=== PATIENT | female | born 1955 | race Caucasian/White ===

== ENCOUNTER 2023-02-04 21:43 | Inpatient (IN) | payer OTHER, MEDICARE, SELFPAY ==
--- NOTE | 2023-02-04 00:10 | RAD_ITS ---
INDICATION: Preop hip surgery EXAMINATION/TECHNIQUE: X-RAY - XR Chest 1 View COMPARISON: None. FINDINGS: LINES/DEVICES: None. LUNGS: No pulmonary edema or focal airspace consolidation. No sizable pleural effusion. No pneumothorax detected. MEDIASTINUM AND CARDIOVASCULAR STRUCTURES: Heart size within normal limits. Mediastinal contours unremarkable. BONES AND SOFT TISSUES: No acute findings. RAD/Chest 1 View (Portable) IMPRESSION: No radiographic evidence of acute cardiopulmonary disease. Electronically Signed: Edgar Ybarra MD at 0:59 EST ,
[2023-02-04 21:44] VITALS: BP 115/53; PULSE 78; RESP 16; TEMP 37.1; O2SAT 100
[2023-02-04 21:47] VITALS: BMI 25.2
--- NOTE | 2023-02-04 22:10 | RAD_ITS ---
STUDY: X-RAY - PELVIS AND LEFT HIP REASON FOR EXAM: Female, 67 years old. fall/pain TECHNIQUE: 3 views of the pelvis and hip. COMPARISON: None. FINDINGS: There is a non-specific bowel gas pattern. Normal visualized soft tissue structures. Normal bilateral iliac wings, sacroiliac joints and visualized sacrum. Normal bilateral superior and inferior pubic rami. Normal pubic symphysis. Normal bilateral ischial tuberosities. Acute impacted fracture of the subcapital femoral neck. Normal acetabulum. Normal hip joint. RAD/HIP, UNI W/ Pelvis 2-3 Views IMPRESSION: Acute impacted fracture of the subcapital femoral neck. Electronically Signed: Jn Holt MD at 22:45 EST ,
--- NOTE | 2023-02-04 23:04 | EKG12_ITS ---
Test Reason : PRE OP Blood Pressure : / mmHG Vent. Rate : 089 BPM Atrial Rate : 089 BPM P-R Int : 192 ms QRS Dur : 084 ms QT Int : 364 ms P-R-T Axes : 065 057 046 degrees QTc Int : 442 ms Normal sinus rhythm Normal ECG Confirmed by EMILY HERNANDEZ, ABHISHEK ([id number]), manuscript editor ANDREEA YOUNG ([id number]) on 02/05/2023 1:11:27 PM Referred By: Andrew Espinoza Confirmed By:ABHISHEK DIAZ MD
--- NOTE | 2023-02-04 23:09 | HP.PCM.HOS_ITS ---
HPI - General General Date of Admission: 02/04/23 Date of Service: 02/04/23 Chief Complaint: Fall, L hip pain. HPI Narrative The patient is a 67 y/o F w/ no PMHx who presents to the [facility] ED on 02/04/23 with history of mechanical fall, walking on her hardwood floors and unfortunately slipping with significant left hip and pelvic pain unable to bear weight with severe ongoing 10 out of 10 pain prompting ED evaluation for further assessment. Workup in the ED included plain film of the left hip with an acutely impacted fracture of the subcapital femoral neck. Pending CBC, BMP, EKG and CXR upon requested evaluation of patient. Patient declined pain medication in the ED initially. ED discussed case with Dr. Stokes Orthopedic surgery. In the ED patient reports pain when she is at rest not moving 3-4/10 in severity to the L hip but if she moves at all as noted 10/10. [facility] Medical History (Updated 02/05/23 @ 00:[address] Eliz Zhang MD) H/O Mohs micrographic surgery for skin cancer No significant past medical history Medical History no medical history Allergy/AdvReac Type Severity Reaction Status Date / Time menthol [From [facility]] Allergy Intermediate Hives Verified 02/04/23 21:53 methyl salicylate Allergy Intermediate Hives Verified 02/04/23 21:53 [From [facility]] Family History (Updated 02/05/23 @ 00:[address] Eliz Zhang MD) Mother Hypertension Father Diabetes Surgical History (Updated 02/05/23 @ 00:[address] Eliz Zhang MD) History of ankle surgery History of section Social History (Updated 02/05/23 @ 00:[address] Eliz Zhang MD) household members: spouse Smoking Status: Never smoker alcohol intake: never substance use type: does not use Vital Signs Vital Signs Vital Signs: 02/04/23 21:44 Temperature 98.7 F Temperature Source Temporal Pulse Rate 78 Respiratory Rate 16 Blood Pressure 115/53 L Blood Pressure Mean 73 Pulse Ox 100 Oxygen Delivery Method Room Air Results Lab / Micro Data 02/04/23 00:02 02/04/23 00:02 Imagaing Radiology Impression Hip/Pelvis X-Ray 02/04/23 22:10 IMPRESSION: Acute impacted fracture of the subcapital femoral neck. Electronically Signed: Jn Holt MD at 22:45 EST , Assessment & Plan Assessment/Plan (1) Closed left hip fracture: PLAN: Plan The patient is a 67 y/o F w/ no PMHx who presents to the [facility] ED on 02/04/23 with history of mechanical fall, walking on her hardwood floors and unfortunately slipping with significant left hip and pelvic pain unable to bear weight with severe ongoing 10 out of 10 pain prompting ED evaluation for further assessment. #1. General debility, left hip pain s/p mechanical fall w/ acutely impacted fracture of the subcapital femoral neck: ED CBC, BMP, EKG, CXR pending upon requested evaluation of patient. Orthopedic surgery consulted from ED. Will admit to MS, maintain NPO, pond placement, monitor I/Os, frequent positioning, fall precautions, PRN pain/anti-emetic regimen. PT/OT following operative inter vention. CM consulted for discharge planning. Per NSQIP guidelines patient with no marked risk elevation given she is healthy with no marked medical history with full self-care, active but awaiting admission CBC, BMP, EKG although do not expect any irregularities and as long as these are appropriate notified PICC surgery that would plan for progression to OR in AM. #2. DVT prophylaxis: SCDs, hold chemoprophylaxis for surgery ideally in AM. Charges/Coding Visit Charges Inpatient E&M: 17418 Init Hosp L2
[2023-02-04 23:24] VITALS: BP 125/63; PULSE 86; RESP 16; O2SAT 96
--- NOTE | 2023-02-04 23:56 | ED.VIS.LOWEX ---
HPI History of Present Illness Chief Complaint: Lower Extremity Injury Narrative Narrative: 67-year-old female present with left hip pain. She states she was walking around the house on her socks and slipped and fell injuring her left hip. She is not able to bear weight. Patient denies hitting her head or loss of consciousness. She denies other injury. She is brought by EMS due to pain. PFSH PFSH Allergy/AdvReac Type Severity Reaction Status Date / Time menthol [From [facility]] Allergy Intermediate Hives Verified 02/04/23 21:53 methyl salicylate Allergy Intermediate Hives Verified 02/04/23 21:53 [From [facility]] Social History Smoking Status: Never smoker ROS ROS ED Constitutional Constitutional ED: Denies chills, fever(s) or sweats Eyes Eyes: Denies blurry vision or change in vision ENT ENT ED: Denies ear pain or sore throat Cardiovascular Cardiovascular: Denies chest pain, palpitations or racing heartbeat Respiratory/Chest Respiratory/Chest: Denies cough, dyspnea or sputum Gastrointestinal Gastrointestinal: Denies abdominal pain, constipation, diarrhea, nausea or vomiting Genitourinary Genitourinary ED: Denies dysuria, hematuria or urinary frequency Musculoskeletal Musculoskeletal: Reports other Details: Left hip pain ; Denies arthralgias, myalgias or neck pain Integumentary Denies abscess, Abrasions or rash Neurologic Neurologic: Denies headache(s), paresthesias or weakness Psychiatric Psychiatric: Denies anxiety, depression, suicidal ideation or suicidal thoughts Endocrine Endocrinology: Denies polydipsia or polyuria EXAM Physical Exam Const Vital Signs: 02/04/23 21:44 Temperature 98.7 F Temperature Source Temporal Pulse Rate 78 Respiratory Rate 16 Blood Pressure 115/53 L Blood Pressure Mean 73 Pulse Ox 100 Oxygen Delivery Method Room Air Positive well nourished General Appearance ED: NAD HEENT normocephalic and atraumatic Chest Wall inspection of chest normal Resp normal respiratory effort Cardio regular rate and regular rhythm Extremity Extremity Narrative: Tenderness palpation over the left hip. Patient is partially able to extend her left hip up off the bed. He does have pain with logroll. Leg is not shortened or externally rotated. Neuro oriented x3 and CN's II-XII intact bilaterally Sensorium / Orientation: alert Motor Exam: strength 5/5 throughout Psych mental status grossly normal MDM MDM MDM Narrative Medical decision making narrative: Patient presenting with left hip pain after fall. She does have pain on examination but is able to slightly extend this hip off the bed. X-ray of the left hip by my interpretation shows an impacted subcapital femoral neck fracture. Radiology interprets this and agrees. Given this CBC and BMP were ordered. Chest x-ray and EKG were ordered for preop clearance. I discussed this with Dr. Stokes who will do surgery. Discussed with hospitalist for admission. Impression: 1. Mechanical fall 2. Left hip fracture Lab Data Attestation: I reviewed the patient's lab results. Radiography Diagnostic Testing: Clinical Impression(s) from Imaging Studies Hip/Pelvis X-Ray 02/04/23 22:10 IMPRESSION: Acute impacted fracture of the subcapital femoral neck. Electronically Signed: Jn Holt MD at 22:45 EST , Discharge Plan Triage Chief Complaint: Lower Extremity Injury ED Provider: Anderw Espinoza Dx/Rx/DC Orders Primary Care Provider: Afua Hagen NP
[2023-02-05] VITALS (15 sets, daily range): BP systolic 114–132; BP diastolic 50–64; PULSE 68–86; RESP 16–18; TEMP 36.4–37.7; O2SAT 92–100; BMI 25.2
[2023-02-05 00:29] LABS: Absolute Lymphocyte Count 1.96 X10^3/uL (0.83-4.51); Absolute Neutrophil Count 7.1 X10^3/uL (2.0-7.7); Basophil# 0.03 X10^3/uL; Basophil% 0.3 % (0-1); Eosinophil# 0.09 X10^3/uL; Eosinophils% 0.9 % (0-5); Hematocrit 36.6 % (37-47); Hemoglobin 11.9 g/dL (12.0-15.0); Lymphocyte # 1.96 X10^3/ul (0.83-4.51); Lymphocyte % 19.7 % (19-41); Mean Corp Hgb Conc 32.5 g/dL (32-36); Mean Corpuscular Hgb 30.7 pg (27.0-32.0); Mean Corpuscular Volume 94.6 fL (81-99); Mean Platelet Vol. 9.7 fl (6.2-12.0); Monocyte# 0.57 X10^3/uL; Monocyte% 5.7 % (0-10); NRBC Flagged by Analyzer 0 % (0-5); Neutrophil # 7.14 X10^3/uL (2.7-7.7); Platelet Count 225 K/mm3 (150-450); RBC Distribution Width CV 13.4 % (11.6-14.6); RBC Distribution Width SD 46.8 fl (35.1-43.9); Red Blood Count 3.87 M/mm3 (4.2-5.4); White Blood Count 9.9 K/mm3 (4.4-11.0)
[2023-02-05 00:33] LABS: Anion Gap 3 (5-15); BUN 13 mg/dL (7-18); BUN/Creat Ratio 17.7 RATIO (10-20); Calcium,Total 9.7 mg/dL (8.5-10.1); Chloride 114 mmol/L (98-107); Creatinine, Serum 0.73 mg/dL (0.55-1.02); EST Glomerular Filtration Rate 84 mL/min (>60); Est Glom Filt Rate - Afr Amer 102 mL/min (>60); Glucose 101 mg/dL (74-106); Potassium 3.9 mmol/L (3.5-5.1); Sodium Level 143 mmol/L (136-145)
[2023-02-05] MEDS: 0.9% Normal Saline (1000mL) 1,000 ML 100 ML IV (00:54)
[2023-02-05] MEDS: oxyCODONE 5 MG Tablet PO ×4 (01:17→23:35)
[2023-02-05 05:41] LABS: Absolute Lymphocyte Count 1.49 X10^3/uL (0.83-4.51); Absolute Neutrophil Count 6.3 X10^3/uL (2.0-7.7); Basophil# 0.03 X10^3/uL; Basophil% 0.4 % (0-1); Eosinophil# 0.03 X10^3/uL; Eosinophils% 0.4 % (0-5); Hematocrit 33.9 % (37-47); Lymphocyte # 1.49 X10^3/ul (0.83-4.51); Lymphocyte % 17.5 % (19-41); Mean Corp Hgb Conc 32.4 g/dL (32-36); Mean Corpuscular Volume 95.5 fL (81-99); Mean Platelet Vol. 10.1 fl (6.2-12.0); Monocyte# 0.61 X10^3/uL; Monocyte% 7.2 % (0-10); NRBC Flagged by Analyzer 0 % (0-5); Neutrophil # 6.31 X10^3/uL (2.7-7.7); Platelet Count 205 K/mm3 (150-450); RBC Distribution Width CV 13.3 % (11.6-14.6); Red Blood Count 3.55 M/mm3 (4.2-5.4); White Blood Count 8.5 K/mm3 (4.4-11.0)
[2023-02-05 06:06] LABS: AST(SGOT) 17 U/L (15-37); Alanine Aminotransfer ALT/SGPT 24 U/L (13-56); Alkaline Phosphatase 75 U/L (45-117); Anion Gap 6 (5-15); BUN 10 mg/dL (7-18); BUN/Creat Ratio 16.5 RATIO (10-20); Calcium,Total 8.7 mg/dL (8.5-10.1); Chloride 113 mmol/L (98-107); EST Glomerular Filtration Rate 105 mL/min (>60); Est Glom Filt Rate - Afr Amer 127 mL/min (>60); Globulin 2.9 g/dL (2.2-4.2); Glucose 102 mg/dL (74-106); Potassium 3.7 mmol/L (3.5-5.1); Protein, Total 5.9 g/dL (6.4-8.2); Sodium Level 143 mmol/L (136-145)
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
--- NOTE | 2023-02-05 09:02 | CON.PCM.OR_ITS ---
HPI Consult Data Date of Consult: 02/05/23 HPI Narrative HPI Narrative: MILADYS GUTIERREZ, is a 67 F who presents with a left femoral neck fracture. Patient had a ground-level fall at home slipped running from the kitchen on carpet. Fell directly onto the hip was having difficulty ambulating after that. No prior antecedent hip pain. Patient ambulates independently lives at home. The patient is here today with her . [facility] Medical History H/O Mohs micrographic surgery for skin cancer No significant past medical history Medical History no medical history Home Medications NK 02/05/23 [History Last Taken Unknown] Allergy/AdvReac Type Severity Reaction Status Date / Time menthol [From [facility]] Allergy Intermediate Hives Verified 02/04/23 21:53 methyl salicylate Allergy Intermediate Hives Verified 02/04/23 21:53 [From [facility]] Family History (Updated 02/05/23 @ 00:[address] Eilz Zhang MD) Mother Hypertension Father Diabetes Surgical History History of ankle surgery History of section Social History (Updated 02/05/23 @ 00:[address] Eliz Zhang MD) household members: spouse Smoking Status: Never smoker alcohol intake: never substance use type: does not use Vital Signs Vital Signs Vital Signs: 02/04/23 21:44 02/05/23 00:37 02/05/23 01:08 Temperature 98.7 F 99.4 F H Temperature Source Temporal Oral Pulse Rate 78 84 Pulse Strength Respiratory Rate 16 16 Respiratory Effort Normal Respiratory Depth Normal Respiratory Pattern Normal Blood Pressure 115/53 L 124/54 H Blood Pressure Mean 73 77 Blood Pressure Source Monitor Blood Pressure Position Semi-Fowlers Blood Pressure Location Left Arm Pulse Ox 100 98 Oxygen Delivery Method Room Air Room Air Room Air 02/05/23 00:12 02/04/23 23:24 02/05/23 04:45 Temperature 99.6 F H Temperature Source Oral Pulse Rate 86 86 83 Pulse Strength Respiratory Rate 16 16 16 Respiratory Effort Respiratory Depth Respiratory Pattern Blood Pressure 125/63 H 125/63 H 114/50 L Blood Pressure Mean 83 83 71 Blood Pressure Source Monitor Blood Pressure Position Semi-Fowlers Blood Pressure Location Left Arm Pulse Ox 96 96 96 Oxygen Delivery Method Room Air Room Air 02/05/23 01:26 02/05/23 08:37 02/05/23 08:37 Temperature Temperature Source Pulse Rate Pulse Strength Normal (2+) Respiratory Rate Respiratory Effort Normal Respiratory Depth Normal Respiratory Pattern Normal Blood Pressure Blood Pressure Mean Blood Pressure Source Blood Pressure Position Blood Pressure Location Pulse Ox 98 Oxygen Delivery Method Room Air Room Air 02/05/23 08:37 Temperature 98.9 F Temperature Source Oral Pulse Rate 81 Pulse Strength Respiratory Rate 16 Respiratory Effort Respiratory Depth Respiratory Pattern Blood Pressure 116/61 Blood Pressure Mean 79 Blood Pressure Source Monitor Blood Pressure Position Semi-Fowlers Blood Pressure Location Left Arm Pulse Ox 92 Oxygen Delivery Method Room Air Weight Weight: 151 lb 10.848 oz Body Mass Index (BMI) 25.2 Physical Exam Const alert, oriented x3, no apparent distress and well nourished Extremity normal capillary refill, no clubbing, cyanosis or edema and no calf tenderness Extremity Narrative: Closed. Left lower extremity marked. Able to wiggle the toes dorsiflex and plantarflex the foot the foot is warm and well-perfused normal sensation on the dorsum and plantar aspect of the foot. Lab / Micro Data 02/05/23 04:05 02/05/23 04:05 Labs: Laboratory Results - last 24 hr 02/04/23 00:02: WBC 9.9, RBC 3.87 L, Hgb 11.9 L, Hct 36.6 L, MCV 94.6, MCH 30.7, MCHC 32.5, RDW Std Deviation 46.8 H, RDW Coeff of Mya 13.4, Plt Count 225, MPV 9.7, Immature Gran % (Auto) 1.400 H, Neut % (Auto) 72.0 H, Lymph % (Auto) 19.7, [place] % (Auto) 5.7, Eos % (Auto) 0.9, Baso % (Auto) 0.3, Absolute Neuts (auto) 7.1, Absolute Lymphs (auto) 1.96, Nucleated RBC % 0, Sodium 143, Potassium 3.9, Chloride 114 H, Carbon Dioxide 26.0, Anion Gap 3 L, BUN 13, Creatinine 0.73, Est GFR (MDRD) Af Amer 102, Est GFR (MDRD) Non-Af 84, BUN/Creatinine Ratio 17.7, Glucose 101, Calcium 9.7 02/05/23 04:05: WBC 8.5, RBC 3.55 L, Hgb 11.0 L, Hct 33.9 L, MCV 95.5, MCH 31.0, MCHC 32.4, RDW Std Deviation 47.0 H, RDW Coeff of Mya 13.3, Plt Count 205, MPV 10.1, Immature Gran % (Auto) 0.500, Neut % (Auto) 74.0 H, Lymph % (Auto) 17.5 L, [place] % (Auto) 7.2, Eos % (Auto) 0.4, Baso % (Auto) 0.4, Absolute Neuts (auto) 6.3, Absolute Lymphs (auto) 1.49, Nucleated RBC % 0, Sodium 143, Potassium 3.7, Chloride 113 H, Carbon Dioxide 24.0, Anion Gap 6, BUN 10, Creatinine 0.60, Estim Creat Clear Calc 49.80, Est GFR (MDRD) Af Amer 127, Est GFR (MDRD) Non-Af 105, BUN/Creatinine Ratio 16.5, Glucose 102, Calcium 8.7, Total Bilirubin 1.00, AST 17, ALT 24, Alkaline Phosphatase 75, Total Protein 5.9 L, Albumin 3.0 L, Globulin 2.9, Albumin/Globulin Ratio 1.0 Imagaing Radiology Impression Chest X-Ray 02/04/23 00:10 IMPRESSION: No radiographic evidence of acute cardiopulmonary disease. Electronically Signed: Edgar Ybarra MD at 0:59 EST , Hip/Pelvis X-Ray 02/04/23 22:10 IMPRESSION: Acute impacted fracture of the subcapital femoral neck. Electronically Signed: Jn Holt MD at 22:45 EST , Agree [place] type I impacted valgus impacted femoral neck fracture. Assessment & Plan Assessment/Plan (1) Closed left hip fracture: PLAN: 67-year-old female with L type I valgus impacted femoral neck fracture. Typical option for this would be open reduction internal fixation with cannulated screws (or other means like FNS). Other option would be hemiarthroplasty although typically I do the former if these are nondisplaced which it does appear to be. Risk of non union or shortening, and still needing arthroplasty in the future but avoids risks with arthroplasty like instability although mobility can recover a bit slower. The other option would be nonsurgical management typically this is high risk of complications like VTE or pneumonias or disaplcement requiring arthrplasty. I explained this to the patient. Discussed the pros and cons risk benefits of each method treatment patient opted for surgery in the form of left hip open reduction internal fixation cannulated screws. I have let the team and anesthesia provider know and the customer solutions representative is aware as well. Patient was to proceed and marked the left hip they have been made n.p.o. and admitted under the hospitalist service already. Plan for this afternoon. Pros and cons risks and benefits were discussed with the patient including but not limited to infection, pain, stiffness, bleeding, damage to surrounding structures, neurovascular injury, recurrence or retear, failure or wear of hardware or fixation, instability, fracture, deep vein thrombosis and pulmonary embolism, anesthetic risks, , patient dissatisfaction, need for further surgery and other risks. Patient understood and wished to proceed with surgery, and signed the informed consent documentation.
--- NOTE | 2023-02-05 10:45 | CASEMGMT ---
QUE SOUSA Face to Face with patient for initial transition planning/care coordination assessment. RN CM introduced self and role at [facility]. Patient lying in bed, alert and oriented. Patient willing to participate in assessment and is able to answer all questions appropriately. Care providers, pharmacy, and demographics verified. Patient wishes to discharge home, will monitor progress with therapy after surgery. RN MERRY discussed different LOC for at discharge. Patient states she has no further needs or concerns at this time. CM to follow for discharge planning needs that may arise. PCP: Hieu JACK PRIZER Specialists: none Preferred Pharmacy: [facility] Insurance: MMO Prescription Benefit: yes Living Will/HPOA: yes, Sami Griffith LNOK: Living Arrangements: Patient lives with in a 2 story home with 2 steps and railing to enter. Patient was independent at home. Transportation: self, DME/HHC: Patient has crutches at home. Will need walker at discharge. No previous HHC or SNF Disposition Plan: TBD, will monitor progress with therapy after surgery. Hailey HOLLIDAY, RN, CM
--- NOTE | 2023-02-05 12:28 | NURSING ---
pt to surgery
[2023-02-05] MEDS: Lactated Ringers 1,000 ML 15 ML IV (12:44)
--- NOTE | 2023-02-05 13:58 | RAD_ITS ---
STUDY: Fluoroscopically guided ORIF surgery through the left hip. REASON FOR EXAM: Female, 67 years old. CANNULATED SCREW TECHNIQUE: Fluoroscopy utilized for ORIF procedure of the left hip. 3 images were obtained during the exam. The radiologist was not present in the room. The reported fluoroscopy time is 117.9 seconds with cumulative dose of 25.1 mGy. COMPARISON: None. FINDINGS: Images reveal 3 fixation screws through the left femoral neck with otherwise normal alignment. There is a left femoral neck subcapital fracture. RAD/HIP, UNI W/ Pelvis 2-3 Views IMPRESSION: Fluoroscopically guided ORIF procedure of the left hip as described. For details please see operative report. Electronically Signed: Yenni Porras MD at 18:25 EST ,
[2023-02-05] MEDS: Cefazolin 2 GM in 0.9% Normal Saline (100mL Bag) 100 ML IV (14:10)
[2023-02-05] MEDS: TXA 1000mg in NS100 100ml (IVPB at Incision) 660 MG IV (14:16)
[2023-02-05] MEDS: Bupivacaine 0.25% 30 ML Vial (14:48)
--- NOTE | 2023-02-05 15:03 | OP.PCM_ITS ---
Problems Associated Problem List Diagnoses (1) Closed left hip fracture: Report of Operation Date of Procedure: 02/05/23 Pre-Operative Diagnosis: L hip femoral neck fracture Post-Operative Diagnosis: same Surgery/Procedure Performed:: L hip ORIF cannulated screws Surgeon: Juan Francisco Stokes Type of Anesthesia: General and Local Anesthesiologist: Maksim Angeles Estimated Blood Loss (mL): 30 Description of Procedure: Patient brought to the program theater. Placed supine on the fracture table. 2 g IV Ancef and 1 g IV tranexamic acid administered prior to the start of the case. Patient left leg in the traction set up no traction slight internal rotation. Opposite leg attached to the center post of the bed appropriately padded. Lower extremity prepped and draped in the usual sterile fashion with chlorhexidine-based prep solution allowing over 3 minutes drying time prior to draping. Shower curtain style drape used. Preoperative timeout performed to confirm the site patient and surgery. I began by taking AP and lateral x-rays to confirm valgus impacted nondisplaced nature of the fracture. I then placed a 3 guidewires 3.2 mm partially-threaded in an inverted triangle fashion the most inferior screw along the inferior calcar erring slightly posteriorly. I passed these up into the subchondral bone ensuring no penetration. Measured these and took a few millimeters from final measurements. 85mm inferior, them 80mm and 80mm PS. I drilled the lateral cortex. I made small stab incisions. I used 7.3 mm short thread cannulated Synthes screws with washer for inferior screw. These were passed to subchondral bone. I did the near far technique with live fluoroscopy. I took fi nal x-rays with the pins were removed as well. Ensured starting point at or proximal to LT. Case terminated and appropriate fixation achieved. Screw purchase was good. Wound thoroughly irrigated. Cleaned with wet and dry dressing. Quarter percent bupivacaine for local anesthetic. Skin closed with 3-0 Monocryl suture. Steri- Strips applied followed by Adaptic gauze and clear plastic dressing. Patient taken out of the traction set up transfer off the operating table and taken to postanesthetic care unit in stable condition. All sponge needle instrument counts were correct. Plan to the patient weightbearing as tolerated and Xarelto starting tomorrow for 30 days VTE prophylaxis. cpt 12548 Complications none Admit VTE Documentation VTE Present on Admission: No VTE Mechan Device Prophylaxis: SCD's VTE Pharm Prophylaxis ordered?: Yes Procedures Musculoskeletal [id number]: Other Procedure See Report
[2023-02-05] MEDS: Acetaminophen 325 MG Tablet 650 MG PO (23:38)
[2023-02-06] VITALS (7 sets, daily range): BP systolic 107–148; BP diastolic 48–64; PULSE 70–84; RESP 16–18; TEMP 35.9–36.9; O2SAT 94–98; BMI 25.4
[2023-02-06 06:50] LABS: Absolute Lymphocyte Count 1.47 X10^3/uL (0.83-4.51); Absolute Neutrophil Count 6.4 X10^3/uL (2.0-7.7); Basophil# 0.02 X10^3/uL; Basophil% 0.2 % (0-1); Eosinophil# 0.05 X10^3/uL; Eosinophils% 0.6 % (0-5); Hematocrit 37.2 % (37-47); Hemoglobin 12.1 g/dL (12.0-15.0); Lymphocyte # 1.47 X10^3/ul (0.83-4.51); Lymphocyte % 16.6 % (19-41); Mean Corp Hgb Conc 32.5 g/dL (32-36); Mean Corpuscular Volume 95.4 fL (81-99); Mean Platelet Vol. 9.8 fl (6.2-12.0); Monocyte# 0.84 X10^3/uL; Monocyte% 9.5 % (0-10); NRBC Flagged by Analyzer 0 % (0-5); Neutrophil # 6.42 X10^3/uL (2.7-7.7); Neutrophil % 72.8 % (47-70); Platelet Count 190 K/mm3 (150-450); RBC Distribution Width CV 13.5 % (11.6-14.6); White Blood Count 8.8 K/mm3 (4.4-11.0)
[2023-02-06 07:11] LABS: Anion Gap 5 (5-15); BUN 7 mg/dL (7-18); BUN/Creat Ratio 11.9 RATIO (10-20); Calcium,Total 9.1 mg/dL (8.5-10.1); Chloride 110 mmol/L (98-107); Creatinine, Serum 0.59 mg/dL (0.55-1.02); EST Glomerular Filtration Rate 109 mL/min (>60); Est Glom Filt Rate - Afr Amer 132 mL/min (>60); Glucose 104 mg/dL (74-106); Magnesium 1.9 mg/dL (1.6-2.6); Phosphorus 2.5 mg/dL (2.5-4.9); Potassium 3.7 mmol/L (3.5-5.1); Sodium Level 140 mmol/L (136-145)
--- NOTE | 2023-02-06 07:34 | PCM.PN.HOSP ---
Reason for Visit Reason for Visit: Diagnoses Fracture of unspecified part of neck of left femur, initial encounter for closed fracture (02/04/23) Subjective Subjective Patient underwent L hip ORIF cannulated screws by Dr. Juan Francisco Stokes on 02/05/2023 Objective Data Objective Data Vital Signs: Vital Signs Temp Pulse Resp BP Pulse Ox O2 Del Method O2 Flow Rate 98 F 84 16 148/57 H 94 Nasal Cannula 2 02/06/23 06:00 02/06/23 06:00 02/06/23 06:00 02/06/23 06:00 02/06/23 06:00 02/06/23 06:00 02/06/23 06:00 Oxygen Flow Rate (L/min) 2 Oxygen Delivery Method Nasal Cannula Weight: 69.3 kg Body Mass Index (BMI) 25.4 Intake & Output: Intake and Output for Last 24 Hours 02/04/23 02/05/23 02/06/23 23:59 23:59 23:59 Intake Total 2036.67 / 2036.67 240 / 240 Output Total 4300 / 4300 1000 / 1000 Balance -2263.33 / -2263.33 -760 / -760 Lab / Micro Data 02/06/23 06:00 02/06/23 06:00 Labs: Laboratory Results - last 24 hr 02/06/23 06:00: WBC 8.8, RBC 3.90 L, Hgb 12.1, Hct 37.2, MCV 95.4, MCH 31.0, MCHC 32.5, RDW Std Deviation 48.0 H, RDW Coeff of Mya 13.5, Plt Count 190, MPV 9.8, Immature Gran % (Auto) 0.300, Neut % (Auto) 72.8 H, Lymph % (Auto) 16.6 L, Power % (Auto) 9.5, Eos % (Auto) 0.6, Baso % (Auto) 0.2, Absolute Neuts (auto) 6.4, Absolute Lymphs (auto) 1.47, Nucleated RBC % 0, Sodium 140, Potassium 3.7, Chloride 110 H, Carbon Dioxide 25.0, Anion Gap 5, BUN 7, Creatinine 0.59, Estim Creat Clear Calc 49.80, Est GFR (MDRD) Af Amer 132, Est GFR (MDRD) Non-Af 109, BUN/Creatinine Ratio 11.9, Glucose 104, Calcium 9.1, Phosphorus 2.5, Magnesium 1.9 Radiography Diagnostic Testing: Radiology Impression Hip/Pelvis X-Ray 02/05/23 13:58 IMPRESSION: Fluoroscopically guided ORIF procedure of the left hip as described. For details please see operative report. Electronically Signed: Yenni Porras MD at 18:25 EST , Physical Exam Narrative GENERAL: cooperative HEENT: Atraumatic; normocephalic EYES; Anicteric, Normal Conjunctiva NECK; supple, normal thyroid, RESPIRATORY: Diminished to auscultation CARDIOVASCULAR: Regular S1 S2, GI: soft, normoactive bowel sounds, : No Renal angle tenderness; EXTREMITIES: No edema, no clubbing, MUSCULOSKELETAL: no muscle wasting NEURO: Awake; no lateralizing signs. SKIN: No Rash PSYCH; Flat affect Assessment & Plan Assessment/Plan (1) Closed left hip fracture: PLAN: Plan Patient is a 67-year-old lady in relatively good health who presented following a mechanical fall imaging studies demonstrated acutely impacted fracture of the soft left femoral neck 1. Acute mechanical fall with acutely impacted fracture of the soft left femoral neck ?Admitted to regular nursing floor for pain management, immobilization with consultation placed to orthopedic surgery. Patient deemed to be low risk for surgical intervention. ? 02/06/2023atient underwent L hip ORIF cannulated screws by Dr. Juan Francisco Stokes on 02/05/2023 2. Physical deconditioning - Requested for PT OT eval and social work supervisor to assist with discharge planning 3. Anemia ? Ordered iron studies. Did discuss results with patient plans for patient to undergo endoscopic evaluation as outpatient following stabilization of her hip fracture 4. Suspected osteoporosis/osteopenia ? Patient to be discharged on calcium with vitamin D 5. DVT prophylaxis ? SCDs for now with plans to initiate chemoprophylaxis following surgical intervention Time spent in the patient's overall evaluation,decision-making process, review of diagnostic data, adjustment of management, discussion with other providers, nursing nursing and ancillary staff involved in patient's care documentation, 35 Minutes Charges/Coding Visit Charges Inpatient E&M: 27527 Subs Hosp L2
[2023-02-06] MEDS: oxyCODONE 5 MG Tablet PO ×3 (08:08→23:49)
[2023-02-06] MEDS: Senna/Docusate Sodium 1 Tablet 2 TABLET PO (08:09)
[2023-02-06] MEDS: Acetaminophen 500 MG Tablet 1000 MG PO ×3 (11:18→23:49)
--- NOTE | 2023-02-06 14:32 | CASEMGMT ---
Patient has a Healthcare Power of Medical Collector and a Healthcare Living Will. Patient is aware the documents are not on file and to bring in copies. Shelli Harry MSW LABORATORY PHLEBOTOMIST
--- NOTE | 2023-02-06 15:54 | CASEMGMT ---
RN CM in to discuss needs at discharge. RN CM reviewed progress with therapy, recommending outpatient therapy. Patient asked about outpatient vs HHC at discharge. RN CM explained both LOC, patient to think about it. DC home planning consultant salesperson to provide HHC list to patient. Patient states she has walker at home, to bring in to adjust to correct height. RN CM will follow-up in morning for discharge disposition. CM will continue to follow this patient and plan for a safe discharge.
--- NOTE | 2023-02-06 16:01 | CASEMGMT ---
Discharge Planning A list of?HH providers including quality and resource use data and consistent with the patient's preferred geographic region, medical needs, and insurance network were printed and provided from the [employer] Guide. Devi Cunningham, Discharge Planning Asst.
[2023-02-07 03:30] VITALS: BP 133/53; PULSE 80; RESP 18; TEMP 37.1; O2SAT 98
[2023-02-07 03:43] VITALS: BMI 25.4
[2023-02-07 06:18] LABS: Absolute Lymphocyte Count 1.93 X10^3/uL (0.83-4.51); Absolute Neutrophil Count 5.9 X10^3/uL (2.0-7.7); Basophil# 0.04 X10^3/uL; Basophil% 0.5 % (0-1); Eosinophil# 0.15 X10^3/uL; Eosinophils% 1.7 % (0-5); Hematocrit 34.9 % (37-47); Hemoglobin 11.4 g/dL (12.0-15.0); Lymphocyte # 1.93 X10^3/ul (0.83-4.51); Lymphocyte % 21.8 % (19-41); Mean Corp Hgb Conc 32.7 g/dL (32-36); Mean Corpuscular Hgb 31.1 pg (27.0-32.0); Mean Corpuscular Volume 95.1 fL (81-99); Mean Platelet Vol. 9.8 fl (6.2-12.0); Monocyte# 0.86 X10^3/uL; Monocyte% 9.7 % (0-10); NRBC Flagged by Analyzer 0 % (0-5); Neutrophil # 5.86 X10^3/uL (2.7-7.7); Neutrophil % 66.1 % (47-70); Platelet Count 167 K/mm3 (150-450); RBC Distribution Width CV 13.4 % (11.6-14.6); RBC Distribution Width SD 47.3 fl (35.1-43.9); Red Blood Count 3.67 M/mm3 (4.2-5.4); White Blood Count 8.9 K/mm3 (4.4-11.0)
[2023-02-07] MEDS: Acetaminophen 500 MG Tablet 1000 MG PO ×2 (06:38→14:57)
[2023-02-07 06:52] LABS: Anion Gap 2 (5-15); BUN 7 mg/dL (7-18); BUN/Creat Ratio 12.1 RATIO (10-20); Calcium,Total 8.8 mg/dL (8.5-10.1); Chloride 112 mmol/L (98-107); Creatinine, Serum 0.58 mg/dL (0.55-1.02); EST Glomerular Filtration Rate 111 mL/min (>60); Est Glom Filt Rate - Afr Amer 134 mL/min (>60); Glucose 116 mg/dL (74-106); Potassium 3.5 mmol/L (3.5-5.1); Sodium Level 141 mmol/L (136-145)
--- NOTE | 2023-02-07 07:28 | PN.ORTHO_ITS ---
Subjective Subjective Postoperative day 1 left hip cannulated screw fixation for valgus impacted femoral neck fracture. I saw the patient yesterday wrote the note today at 7:30 in the morning. No acute concerns. Objective Data Objective Data Vital Signs: Vital Signs Temp Pulse Resp BP Pulse Ox O2 Del Method O2 Flow Rate 98.8 F 80 18 133/53 H 98 Room Air 2 02/07/23 03:30 02/07/23 03:30 02/07/23 03:30 02/07/23 03:30 02/07/23 03:30 02/07/23 03:30 02/06/23 06:00 Oxygen Flow Rate (L/min) 2 Oxygen Delivery Method Room Air Weight: 153 lb 3.54 oz Body Mass Index (BMI) 25.4 Intake & Output: Intake and Output for Last 24 Hours 02/05/23 02/06/23 02/07/23 23:59 23:59 23:59 Intake Total 2036.67 / 2036.67 1288.75 / 1288.75 480 / 480 Output Total 4300 / 4300 1500 / 1500 Balance -2263.33 / -2263.33 -211.25 / -211.25 480 / 480 Lab / Micro Data 02/07/23 05:40 02/07/23 05:40 Labs: Laboratory Results - last 24 hr 02/07/23 05:40: WBC 8.9, RBC 3.67 L, Hgb 11.4 L, Hct 34.9 L, MCV 95.1, MCH 31.1, MCHC 32.7, RDW Std Deviation 47.3 H, RDW Coeff of Mya 13.4, Plt Count 167, MPV 9.8, Immature Gran % (Auto) 0.200, Neut % (Auto) 66.1, Lymph % (Auto) 21.8, [place] % (Auto) 9.7, Eos % (Auto) 1.7, Baso % (Auto) 0.5, Absolute Neuts (auto) 5.9, Absolute Lymphs (auto) 1.93, Nucleated RBC % 0, Sodium 141, Potassium 3.5, Chloride 112 H, Carbon Dioxide 27.0, Anion Gap 2 L, BUN 7, Creatinine 0.58, Estim Creat Clear Calc 49.80, Est GFR (MDRD) Af Amer 134, Est GFR (MDRD) Non-Af 111, BUN/Creatinine Ratio 12.1, Glucose 116 H, Calcium 8.8 Physical Exam Const alert, oriented x3, no apparent distress and well nourished Extremity Extremity Narrative: Dressing dry some mild strikethrough. Thigh compartments soft normal sensation motor function to the foot foot is warm and well-perfused. Assessment & Plan Assessment/Plan (1) Closed left hip fracture: PLAN: 67-year-old female postoperative day 1 cannulated screw fixation for femoral neck fracture. WBAT. Start PT and OT and will follow while in hospital. Xarelto 10 mg once daily for VTE prophylaxis.
[2023-02-07 09:00] VITALS: BP 98/50; PULSE 86; RESP 16; TEMP 36.9; O2SAT 96
[2023-02-07] MEDS: Senna/Docusate Sodium 1 Tablet 2 TABLET PO (09:03)
--- NOTE | 2023-02-07 10:13 | CASEMGMT ---
Addendum entered by Hailey Kennedy 02/07/23 11:25: RN MERRY received call back from [facility] and they are able to accept patient with planned start of care for Sunday. RN CM updated patient. Patient had no further questions or concerns Original Note: RN CM in to discuss discharge plans. Patient would like [facility] at discharge for PT and prefers [facility]. Patient had no further questions or concerns at this time. RN CM called and left message for referral, awaiting call back. CM will continue to follow this patient and plan for a safe discharge.
--- NOTE | 2023-02-07 11:21 | PCM.DC ---
Discharge Instructions Diet Discharge Diet: No restrictions Activity Discharge Activity: Use Walker Weight Bearing Status: Weight bearing as tolerated Follow Up Care Test Results: Test results from this visit will be discussed in further detail at your follow-up appointment, if applicable. Discharge Plan Admission Admit Date/Time: 02/04/23 23:10 Primary Reason for Your Visit: left femoral neck fracture Attending Provider: Edgar Rashid Primary Care Provider: Afua Hagen NP Consulting Providers: Juan Francisco Stokes; Eliz Zhang; Spencer Thompson; Yasmany Horn Instructions Additional Instructions / Restrictions: Recommend you take one 81mg aspirin twice a day for the next three weeks Discharge Orders/Prescriptions Prescriptions: New hydrocodone-acetaminophen 5-325 mg tablet 1 tab PO Q4H PRN (Reason: pain) 3 Days Qty: 15 0RF Rx Instructions: you may also take one Tylenol 500 mg with each one if you desire Referrals / Follow Up: Juan Francisco Stokes MD [Med Staff - Active Staff] - See Referral Note (In 2 weeks, call for appointment) Afua Hagen NP, COST ENGINEER-C [Primary Care Provider] - Disposition Disposition (needs filled in before D/C Order can be placed): Home Health Service
--- NOTE | 2023-02-07 11:33 | DS.PCM_ITS ---
Providers Date of Admission: 02/04/23 Date of Discharge: 02/07/23 Primary Care Physician: Afua Hagen, HAYLIE-Lanny Consultations 02/05/23 00:29 Consult: Orthopedics Routine Consulting Provider: Juan Francisco Stokes Reason for Consult: Fall, L hip fx EMERGENT Consult: No MD Notified: Yes Date Notified: 02/04/23 Time Notified: 23:10 Method of Notification: ED Physician Initiated Reason For Visit: FALL, L HIP FX Diagnosis Discharge Diagnosis (1) Closed left hip fracture: Status: Acute Code(s): S72.002A - Fracture of unspecified part of neck of left femur, initial encounter for closed fracture Plan 1. Acute femoral neck fracture secondary to osteoporosis Medications at Discharge Home Medications hydrocodone-acetaminophen 5-325mg 5mg-325mg 1 tab PO Q4H PRN pain 3 days #15 tabs 02/07/23 Hospital Course Operations - (ORIF left hip fracture) Procedures None Summary of Care Provided Minutes Spent on Discharge: 30 Hospital Course: This 67-year-old white female was seen in the emergency room at [facility] after she had a slip on the floor of her house and fell landing on her left hip. She was not able to bear weight after that and was brought in for evaluation. Labs obtained showed a mild anemia, patient's x-ray showed a impacted fracture of the left subcapital femoral neck. Patient was admitted to PCU, she was seen in consultation by orthopedic surgery, on 02/05/2023 she underwent ORIF of the left hip, PT and OT saw the patient postop and she did well. On 02/07/2023, patient was seen and examined: On examination she appeared in good health and spirits, she does not appear to be in any distress. Vital signs as documented. Skin warm and dry and without overt rashes. Neck without JVD, thyroid appears normal, trachea is midline, neck is supple. Lungs clear, normal air movement was noted. Heart exam notable for regular rhythm, normal sounds and absence of murmurs, rubs or gallops. Abdomen unremarkable and without evidence of organomegaly, masses, or abdominal aortic enlargement, bowel sounds are present in all 4 quadrants, no abdominal tenderness was noted. Extremities nonedematous, no cyanosis was noted, no clubbing was noted. Neuro: Cranial nerves II through XII are grossly intact, no focal motor deficits were noted, sensation to light touch and pinprick is intact, motor exam 5/5 throughout. Psych: Patient is alert and oriented x3, she does not appear anxious or depressed, she does not appear agitated. Patient appears stable for discharge home on 02/07/2023. Weight / BMI Weight Weight: 69.5 kg Body Mass Index (BMI) 25.4 ABG / Lab / Microbiology Data 02/07/23 05:40 02/07/23 05:40 Laboratory: Laboratory Results - last 24 hr 02/07/23 05:40: WBC 8.9, RBC 3.67 L, Hgb 11.4 L, Hct 34.9 L, MCV 95.1, MCH 31.1, MCHC 32.7, RDW Std Deviation 47.3 H, RDW Coeff of Mya 13.4, Plt Count 167, MPV 9.8, Immature Gran % (Auto) 0.200, Neut % (Auto) 66.1, Lymph % (Auto) 21.8, [place] % (Auto) 9.7, Eos % (Auto) 1.7, Baso % (Auto) 0.5, Absolute Neuts (auto) 5.9, Absolute Lymphs (auto) 1.93, Nucleated RBC % 0, Sodium 141, Potassium 3.5, Chloride 112 H, Carbon Dioxide 27.0, Anion Gap 2 L, BUN 7, Creatinine 0.58, Estim Creat Clear Calc 49.80, Est GFR (MDRD) Af Amer 134, Est GFR (MDRD) Non-Af 111, BUN/Creatinine Ratio 12.1, Glucose 116 H, Calcium 8.8 D/C Instructions Discharge Diet: No restrictions Weight Bearing Status: Weight bearing as tolerated Meaningful Use Info Meaningful Use Diagnoses (Choose all that apply): None applicable Discharge Plan Admission Admit Date/Time: 02/04/23 23:10 Primary Reason for Your Visit: left femoral neck fracture Attending Provider: Edgar Rashid Primary Care Provider: Afua Hagen NP Consulting Providers: Juan Francisco Stokes; Eliz Zhang; Spencer Thompson; Yasmany Horn Instructions Additional Instructions / Restrictions: Recommend you take one 81mg aspirin twice a day for the next three weeks Discharge Orders/Prescriptions Prescriptions: New hydrocodone-acetaminophen 5-325 mg tablet 1 tab PO Q4H PRN (Reason: pain) 3 Days Qty: 15 0RF Rx Instructions: you may also take one Tylenol 500 mg with each one if you desire Referrals / Follow Up: Juan Francisco Stokes MD [Med Staff - Active Staff] - See Referral Note (In 2 weeks, call for appointment) Afua Hagen NP, FISCAL CLERK-C [Primary Care Provider] - Disposition Disposition (needs filled in before D/C Order can be placed): Home Health Service Charges/Coding Visit Charges Inpatient E&M: 33930 Disch Hosp
[2023-02-07 14:58] VITALS: BP 113/62; PULSE 84; RESP 16; TEMP 36.6; O2SAT 98
[2023-02-07] MEDS: oxyCODONE 5 MG Tablet PO (15:07)
--- NOTE | 2023-02-07 16:00 | PHA.DC.MC.R ---
Pharmacy [facility] Pharm[facility] Service has performed discharge medication reconciliation and counseling for this patient. 1. ASPIRIN 81MG PO BIDCM 2. NORCO 5/325MG 1T PO Q4H PRN PAIN The patient's discharge medication list was reviewed for discrepancies and discrepancies were resolved. The patient was counseled on the following discharge medications and changes in medications for homegoing were reviewed. The Reason for Use, instructions for use, and potential side effects were reviewed for all new medications. The patient's questions regarding all of their medications were answered. The patient was able to verbally demonstrate an understanding of their discharge medications. Medications at Discharge Home Medications hydrocodone-acetaminophen 5-325mg 5mg-325mg 1 tab PO Q4H PRN pain 3 days #15 tabs 02/07/23
== END 2023-02-07 15:34 | disposition home health service (06) | DRG 482 ==
LOC: ED 23:06 → PCU 23:18
PROVIDERS: Internal Medicine; Orthopaedic Surgery Sports Medicine; Admitting Provider Family Medicine; Emergency Provider Student in an Organized Health Care Education/Training Program; PCP Registered Nurse; Referring Provider Student in an Organized Health Care Education/Training Program; Visit Provider Internal Medicine
PROC: 0SSB04Z Reposition Left Hip Joint with Internal Fixation Device, Open Approach (ICD-10-PCS; principal; 2023-02-05 13:00)
DX: S72.002A Fracture of unspecified part of neck of left femur, initial encounter for closed fracture (principal); D64.9 Anemia, unspecified; W01.0XXA Fall on same level from slipping, tripping and stumbling without subsequent striking against object, initial encounter
CPT/HCPCS: 36415; 71045; 73502; 76000; 80048; 80053; 83735; 84100; 85025; 93005; 94668; 97162; 97166; 97530; 97535; 99284; C1713; J7030; J7120; A4216; J2405